=== PATIENT | male | born 1970 | race Caucasian/White ===

== ENCOUNTER 2020-04-13 16:14 | Emergency (ER) | payer BC ==
[~2020-04-13] VITALS: Ht 188 cm; Wt 136.1 kg
--- OUTSIDE RECORDS SUMMARY | ~2020-04-13 | XMS | Encounter Summary ---
Demographics + + + | Address | [address] | | | [place] [address] | + + + | Home Phone | | + + + | Preferred Language | Unknown | + + + | Marital Status | Single | + + + | Hoahaoism Affiliation | Unknown | + + + | Race | Unknown | + + + | Ethnic Group | Unknown | + + + Author + + + | Author | [facility] [place] | | | and [place] | + + + | Organization | [facility] | | | and [place] | + + + | Address | Unknown | + + + | Phone | Unavailable | + + + Support + + +---------+ + | Name | Relationship | Address | Phone | + + +---------+ + | Lyn Humphrey | ECON | Unknown | | + + +---------+ + Care Team Providers + +------+ + | Care Director Of Purchasing Name | Role | Phone | + +------+ + PCP | Unavailable | + +------+ + Encounter Details +--------+ + + + + | Date | Type | Department | Care Team | Description | +--------+ + + + + | 07/17/ | Hospital | [facility] [facility] | Alondra Mota | | | 2014 | Encounter | [facility] | [address] | | | | | CLIN[address] | [place] | | | | | [place], [place] | [address] | | | | | [address] | [phone] | | | | | [phone] | | | +--------+ + + + + Social History + +-------+ +--------+------+ | Tobacco Use | Types | Packs/Day | Years | Date | | | | | Used | | + +-------+ +--------+------+ | Never Assessed | | | | | + +-------+ +--------+------+ + + + | Sex Assigned at | Date Recorded | | | | + + + | Not on file | | + + + + + + + | Job Start Date | Occupation | Industry | + + + + | Not on file | Not on file | Not on file | + + + + + + + + | Travel History | Travel Start | Travel End | + + + + + + | No recent travel history available. | + + documented as of this encounter Plan of Treatment Not on filedocumented as of this encounter Visit Diagnoses Not on filedocumented in this encounter"
--- OUTSIDE RECORDS SUMMARY | ~2020-04-13 | XMS | Clinical Summary ---
Demographics + + + | Address | [address] | | | [place] [address] | + + + | Home Phone | | + + + | Preferred Language | Unknown | + + + | Marital Status | Single | + + + | Latter-Day Affiliation | Unknown | + + + | Race | Unknown | + + + | Ethnic Group | Unknown | + + + Author + + + | Author | [facility] | | | and [place] | + + + | Organization | [facility] | | | and [place] | [...] Team Providers + +------+ + | Care Senior Clinical Research Associate Name | Role | Phone | + +------+ + | Zoran Villeda | PCP | | | PA-C | | | + +------+ + Allergies Not on File Medications Not on file Active Problems Not on file Social History + +-------+ +--------+------+ | Tobacco [...] recent travel history available. | + + Last Filed Vital Signs + + + + + | Vital Sign | Reading | Time Taken | Comments | + + + + + | Blood Pressure | 126/78 | 08/27/2015 12:42 PM | | | | | PDT | | + + + + + | Pulse | 89 | 08/27/2015 12:42 PM | | | | | PDT | | + + + + + | Temperature | 36.4 C (97.6 F) | 08/27/2015 12:42 PM | | | | | PDT | | + + + + + | Respiratory Rate | 18 | 08/27/2015 12:42 PM | | | | | PDT | | + + + + + | Oxygen Saturation | 95% | 08/27/2015 12:42 PM | | | | | PDT | | + + + + + | Inhaled Oxygen | - | - | | | Concentration | | | | + + + + + | Weight | 149.4 kg (329 lb 6.4 | 08/27/2015 12:42 PM | | | | oz) | PDT | | + + + + + | Height | 188 cm (6' 2") | 08/27/2015 12:42 PM | | | | | PDT | | + + + + + | Body Mass Index | 42.29 | 08/27/2015 12:42 PM | | | | | PDT | | + + + + + Plan of Treatment + + + + + | Health Maintenance | Due Date | Last Done | Comments | + + + + + | Vaccine: | | | | | Dtap/Tdap/Td (1 - | 2 | | | | Tdap) | | | | + + + + + | Vaccine: Influenza | | | | | (Season Ended) | 0 | | | + + + + + Results Not on filefrom Last 3 Months
--- OUTSIDE RECORDS SUMMARY | ~2020-04-13 | XMS | Encounter Summary ---
Demographics + + + | Address | [address] | | | [place] [address] | + + + | Home Phone | | + + + | Preferred Language | Unknown | + + + | Marital Status | Single | + + + | Hoahaoism Affiliation | Unknown | + + + | Race | Unknown | + + + | Ethnic Group | Unknown | + + + Author + + + | Author | [facility] | | | and [place] | + + + | Organization | [facility] | | | and [place] | [...] Team Providers + +------+ + | Care Soil Analyst Name | Role | Phone | + +------+ + PCP | Unavailable | + +------+ + Encounter Details +--------+ + + + + | Date | Type | Department | Care Team | Description | +--------+ + + + + | 07/30/ | [facility] | [facility] | Chelsi Collado | | | 2014 | Encounter | [facility] | [address] | | | | | [address] | [facility], [place] | | | | | [facility] [place], | [address] | | | | | [place] [address] | [phone] | | | | | [phone] | | | +--------+ + + + [...]
--- OUTSIDE RECORDS SUMMARY | ~2020-04-13 | XMS | Encounter Summary ---
Demographics + + + | Address | [address] | | | [place] [address] | + + + | Home Phone | | + + + | Preferred Language | Unknown | + + + | Marital Status | Single | + + + | Restorationism Affiliation | Unknown | + + + | Race | Unknown | + + + | Ethnic Group | Unknown | + + + Author + + + | Author | [facility] | | | and [place] | + + + | Organization | [facility] | | | and [place] | [...] Team Providers + +------+ + | Care Animal Care Attendant Name | Role | Phone | + +------+ + PCP | Unavailable | + +------+ + Encounter Details +--------+ + + + + | Date | Type | Department | Care Team | Description | +--------+ + + + + | 12/20/ | Hospital | [facility] [facility] | Chelsi Collado | | | 2015 | Encounter | [facility] X[facility] | [address] | | | | | [place] | [facility], [place] | | | | | [place] | [address] | | | | | [address] | [phone] | | | | | [phone] | | | +--------+ + + + [...] Not on filedocumented as of this encounter Procedures + +--------+ + + + | Procedure Name | Priori | Date/Time | Associated Diagnosis | Comments | | | ty | | | | + +--------+ + + + | US ABDOMEN LIMITED | Routin | 12/20/2014 | | Results for this | | | e | 7:33 AM | | procedure are in the | | | | PST | | results section. | + +--------+ + + + documented in this encounter Results US Abdomen Limited (12/20/2014 7:33 AM PST) + + | Specimen | + + | | + + + + + | Narrative | Performed At | + + + | ORIGINAL ULTRASOUND GALLBLADDER: CLINICAL | | | STATEMENT: Right upper quadrant pain. COMPARISON: None. | | | REPORT: The gallbladder is satisfactorily distended without stones, | | | wall thickening or pericholecystic edema. The common duct is 2 mm. | | | Increased hepatic echogenicity with masking of the portal triads is | | | noted. Adjacent to the gallbladder is a region of hypoechogenicity | | | relative to the remaining visualized liver probably on the basis of | | | focal fatty sparing. IMPRESSION: 1. The gallbladder appears | | | within normal limits. 2. Diffuse fatty infiltration of the liver. | | | Read By: SARAH Smart | | | MD ELI Released By: SARAH BENITEZ MD Date: 12/21/2014 | | | 07:49 | | + + + + + | Procedure Note | + + | Willem, Rad Results In - 09/15/2017 6:32 PM PST ORIGINAL ULTRASOUND GALLBLADDER: | | CLINICAL STATEMENT:Right upper quadrant pain. COMPARISON:None. REPORT:The gallbladder is | | satisfactorily distended without stones, wall thickening or pericholecystic edema. The | | common duct is 2 mm. Increased hepatic echogenicity with masking of the portal triads | | is noted. Adjacent to the gallbladder is a region of hypoechogenicity relative to the | | remaining visualized liver probably on the basis of focal fatty sparing. IMPRESSION:1. | | The gallbladder appears within normal limits.2. Diffuse fatty infiltration of the liver. | | Job#: [id number] Read By: SARAH BENITEZ MD Released By: SARAH Smart | | ELI MDDate: 12/21/2014 07:49 | |COMPARISON: | |None. | | | |REPORT: | |The gallbladder is satisfactorily distended without stones, wall thickening or pericholecys tic edema. The common duct is 2 mm. | | | |Increased hepatic echogenicity with masking of the portal triads is noted. Adjacent to the gallbladder is a region of hypoechogenicity relative to the remaining visualized liver prob ably on the basis of focal fatty sparing. | | | |IMPRESSION: | |1. The gallbladder appears within normal limits. | |2. Diffuse fatty infiltration of the liver. | | | | | | | | | | | | | | | | | |Read By: SARAH BENITEZ MD | | | |Released By: SARAH BENITEZ MD | |Date: 12/21/2014 07:49 | | | | | + + documented in this encounter Visit Diagnoses Not on filedocumented in this encounter"
--- OUTSIDE RECORDS SUMMARY | ~2020-04-13 | XMS | Encounter Summary ---
Demographics + + + | Address | [address] | | | [place] [address] | + + + | Home Phone | | + + + | Preferred Language | Unknown | + + + | Marital Status | Single | + + + | Spiritism Affiliation | Unknown | + + + | Race | Unknown | + + + | Ethnic Group | Unknown | + + + Author + + + | Author | [facility] [place] | | | and [place] | + + + | Organization | [facility] | | | and [place] [...] Team Providers + +------+ + | Care Nutrition Partner Name | Role | Phone | + [...] | | | | [place] | [facility], [place] | | | | | [place] | [address] | | | | | [address] | [phone] | | | | | [phone] | | | +--------+ + + + [...] | + +--------+ + + + | XR FOOT RIGHT 3 + VW | Routin | 12/20/2014 | | Results for this | | | e | 7:39 AM | | procedure are in the | | | | PST | | results section. | + +--------+ + + + documented in this encounter Results XR Foot Right 3 + Vw (12/20/2014 7:39 AM PST) + + | Specimen | + + | | + + + + + | Narrative | Performed At | + + + | ORIGINAL FOOT, THREE VIEW, RIGHT: CLINICAL | | | STATEMENT: Right foot pain. REPORT: No fracture or dislocation | | | is seen. No periosteal thickening is evident. No distinct joint | | | space asymmetry is seen. On lateral projection bony hypertrophic | | | change is noted at the talonavicular joint. IMPRESSION: 1. No | | | acute findings identified. 2. Bony hypertrophic change talonavicular | | | joint with talar beak type appearance. This finding may relate to | | | degenerative change of the talonavicular joint, although coalition | | | type process can result in talar beaking. CT and/or MRI may provide | | | additional information. | | | Read By: SARAH BENITEZ MD Released By: SARAH BENITEZ, | | | Date: 12/21/2014 07:49 | | + + + + + | Procedure Note | + + | Willem, Rad Results In - 09/15/2017 6:32 PM PST ORIGINAL FOOT, THREE VIEW, RIGHT: | | CLINICAL STATEMENT:Right foot pain. REPORT:No fracture or dislocation is seen. No | | periosteal thickening is evident. No distinct joint space asymmetry is seen. On | | lateral projection bony hypertrophic change is noted at the talonavicular joint. | | IMPRESSION:1. No acute findings identified.2. Bony hypertrophic change talonavicular | | joint with talar beak type appearance. This finding may relate to degenerative change of | | the talonavicular joint, although coalition type process can result in talar beaking. | | CT and/or MRI may provide additional information. Job#: [id number] Read | | By: SARAH BENITEZ MD Released By: SARAH BENITEZ MDDate: 12/21/2014 07:49 | |REPORT: | |No fracture or dislocation is seen. No periosteal thickening is evident. No distinct join t space asymmetry is seen. On lateral projection bony hypertrophic change is noted at the t alonavicular joint. | | | |IMPRESSION: | |1. No acute findings identified. | |2. Bony hypertrophic change talonavicular joint with talar beak type appearance. This findi ng may relate to degenerative change of the talonavicular joint, although coalition type pro cess can result in talar | |beaking. CT and/or MRI may provide additional | | information. | | | | | | | | | | | | | | | | | |Read By: SARAH BENITEZ MD | | | |Released By: SARAH BENITEZ MD | |Date: 12/21/2014 07:49 | | | | | + + documented in this encounter Visit Diagnoses Not on filedocumented in this encounter"
--- OUTSIDE RECORDS SUMMARY | ~2020-04-13 | XMS | Encounter Summary ---
Demographics + + + | Address | [address] | | | [place] [address] | + + + | Home Phone | | + + + | Preferred Language | Unknown | + + + | Marital Status | Single | + + + | Restorationism Affiliation | Unknown | + + + | Race | Unknown | + + + | Ethnic Group | Unknown | + + + Author + + + | Author | [facility] | | | and [place] | + + + | Organization | [facility] | | | and [place] [...] Team Providers + +------+ + | Care Occupational Health Manager Name | Role | Phone | + +------+ + PCP | Unavailable | + +------+ + Encounter Details +--------+ + + + + | Date | Type | Department | Care Team | Description | +--------+ + + + + | 08/27/ | [facility] | [facility] | Chelsi Collado | | | 2014 | Encounter | [facility] | [address] | | | | | [address] | [facility], [place] | | | | | [facility], | [address] | | | | | [place] [address] | [phone] | | | | | [phone] | | | +--------+ + + + [...]
--- OUTSIDE RECORDS SUMMARY | ~2020-04-13 | XMS | Encounter Summary ---
Demographics + + + | Address | [address] | | | [place] [address] | + + + | Home Phone | | + + + | Preferred Language | Unknown | + + + | Marital Status | Single | + + + | Christianity Affiliation | Unknown | + + + | Race | Unknown | + + + | Ethnic Group | Unknown | + + + Author + + + | Author | [facility] | | | and [place] | + + + | Organization | [facility] | | | and [place] [...] Team Providers + +------+ + | Care Grinding Machine Operator Portable Name | Role | Phone | + +------+ + PCP | Unavailable | + +------+ + Encounter Details +--------+ + + + + | Date | Type | Department | Care Team | Description | +--------+ + + + + | 07/30/ | [facility] | [facility] | Chelsi Collado | | | 2014 | Encounter | [facility] | [address] | | | | | [address] | [facility], [place] | | | | | [facility], | [address] | | | | | [place] [address] | [phone] | | | | | [phone] | | | +--------+ + + + [...]
--- OUTSIDE RECORDS SUMMARY | ~2020-04-13 | XMS | Encounter Summary ---
Demographics + + + | Address | [address] | | | [place] [address] | + + + | Home Phone | | + + + | Preferred Language | Unknown | + + + | Marital Status | Single | + + + | Congregational Affiliation | Unknown | + + + | Race | Unknown | + + + | Ethnic Group | Unknown | + + + Author + + + | Author | [facility] | | | and [place] | + + + | Organization | [facility] | | | and [...] Team Providers + +------+ + | Care Truck Rental Service Attendant Name | Role | Phone | + +------+ + PCP | Unavailable | + +------+ + Encounter Details +--------+ + + + + | Date | Type | Department | Care Team | Description | +--------+ + + + + | 08/27/ | [facility] | [facility] | Chelsi Collado | | | 2014 | Encounter | [facility] | [address] | | | | | [address] | [facility], [place] | | | | | [facility], | [address] | | | | | [place] [address] | [phone] | | | | | [phone] | | | +--------+ + + + [...]
--- OUTSIDE RECORDS SUMMARY | ~2020-04-13 | XMS | Encounter Summary ---
Demographics + + + | Address | [address] | | | [place] [address] | + + + | Home Phone | | + + + | Preferred Language | Unknown | + + + | Marital Status | Single | + + + | Druze Affiliation | Unknown | + + + | Race | Unknown | + + + | Ethnic Group | Unknown | + + + Author + + + | Author | [facility] | | | and [place] | + + + | Organization | [facility] | | | and [place] [...] Team Providers + +------+ + | Care Car Dumper Name | Role | Phone | + +------+ + PCP | Unavailable | + +------+ + Encounter Details +--------+ + + + + | Date | Type | Department | Care Team | Description | +--------+ + + + + | 05/14/ | Hospital | [facility] | Alondra Mota | | | 2015 | Encounter | [facility] | [address] | | | | | [facility] | [place] | | | | | [address] [facility], | [address] | | | | | [place] [address] | [phone] | | | | | [phone] | | | +--------+ + + + [...]
--- OUTSIDE RECORDS SUMMARY | ~2020-04-13 | XMS | Encounter Summary ---
Demographics + + + | Address | [address] | | | [place] [address] | + + + | Home Phone | | + + + | Preferred Language | Unknown | + + + | Marital Status | Single | + + + | Jainism Affiliation | Unknown | + + + | Race | Unknown | + + + | Ethnic Group | Unknown | + + + Author + + + | Author | [facility] | | | and [place] | + + + | Organization | [facility] | | | and [place] [...] Team Providers + +------+ + | Care Slurry Blender Name | Role | Phone | + +------+ + PCP | Unavailable | + +------+ + Encounter Details +--------+ + + + + | Date | Type | Department | Care Team | Description | +--------+ + + + + | 05/24/ | Hospital | [facility] | Chelsi Collado | | | 2015 | Encounter | [facility] X[facility] | [address] | | | | | [place] | [facility], [place] | | | | | [place] | [address] | | | | | [address] | [phone] | | | | | [phone] | | | +--------+ + + + [...] | + +--------+ + + + | FL BARIUM SWALLOW | Routin | 05/24/2015 | | Results for this | | | e | 8:54 AM | | procedure are in the | | | | PDT | | results section. | + +--------+ + + + documented in this encounter Results FL Barium Swallow (05/24/2015 8:54 AM PDT) + + | Specimen | + + | | + + + + + | Narrative | Performed At | + + + | ORIGINAL ESOPHAGRAM: HISTORY: Dysphagia. | | | FINDINGS: Course and caliber of the esophagus is within normal | | | limits. No intraluminal filling defect. No tertiary contractions. | | | Mild dysmotility was noted with the patient in prone position. | | | There is a small hiatal hernia. Ujui-dl-zbbuasee amount of | | | gastroesophageal reflux was also noted. IMPRESSION: 1. Small | | | hiatal hernia. 2. Gastroesophageal reflux. 3. Mild dysmotility. | | | Total fluoro time 1 minute 46 seconds. Job#: | | | [id number] Read By: JURGEN LUNA MD Released By: JURGEN | | | Berry LUNA MD Date: 05/24/2015 13:57 | | + + + + + | Procedure Note | + + | Willem, Rad Results In - 09/15/2017 7:51 PM PST ORIGINAL ESOPHAGRAM: | | HISTORY:Dysphagia. FINDINGS:Course and caliber of the esophagus is within normal limits. | | No intraluminal filling defect. No tertiary contractions. Mild dysmotility was noted | | with the patient in prone position. There is a small hiatal hernia. Rpwn-wo-vcinlwcv | | amount of gastroesophageal reflux was also noted. IMPRESSION:1. Small hiatal hernia.2. | | Gastroesophageal reflux.3. Mild dysmotility. Total fluoro time 1 minute 46 seconds. D: | | 05/24/15Job#: [id number] Read By: JURGEN LUNA MD Released By: JURGEN LUNA, | | MDDate: 05/24/2015 13:57 | | | |FINDINGS: | |Course and caliber of the esophagus is within normal limits. No intraluminal filling defec t. No tertiary contractions. Mild dysmotility was noted with the patient in prone position . There is a small hiatal hernia. Osul-ji-lfuziily amount of | |gastroesophageal reflux was also noted. | | | |IMPRESSION: | |1. Small hiatal hernia. | |2. Gastroesophageal reflux. | |3. Mild dysmotility. | | | |Total fluoro time 1 minute 46 seconds. | | | | | | | | | |Read By: JURGEN LUNA MD | | | |Released By: JURGEN LUNA MD | |Date: 05/24/2015 13:57 | | | | | + + documented in this encounter Visit Diagnoses Not on filedocumented in this encounter"
--- OUTSIDE RECORDS SUMMARY | ~2020-04-13 | XMS | Encounter Summary ---
Demographics + + + | Address | [address] | | | [place] [address] | + + + | Home Phone | | + + + | Preferred Language | Unknown | + + + | Marital Status | Single | + + + | Methodist Affiliation | Unknown | + + + | Race | Unknown | + + + | Ethnic Group | Unknown | + + + Author + + + | Author | [facility] | | | and [place] | + + + | Organization | [facility] | | | and [place] | [...] Team Providers + +------+ + | Care Pre Parole Counseling Aide Name | Role | Phone | + [...] | | | [place], [place] | [address] | | | | | [address] | [phone] | | | | | [phone] | | | +--------+ + + + [...]
--- OUTSIDE RECORDS SUMMARY | ~2020-04-13 | XMS | Encounter Summary ---
Demographics + + + | Address | [address] | | | [place] [address] | + + + | Home Phone | | + + + | Preferred Language | Unknown | + + + | Marital Status | Single | + + + | Baptist Affiliation | Unknown | + + + | Race | Unknown | + + + | Ethnic Group | Unknown | + + + Author + + + | Author | [facility] | | | and [place] | + + + | Organization | [facility] | | | and [place] | [...] Team Providers + +------+ + | Care Fur Matcher Name | Role | Phone | + +------+ + PCP | Unavailable | + +------+ + Encounter Details +--------+ + + + + | Date | Type | Department | Care Team | Description | +--------+ + + + + | 04/02/ | Hospital | [place] [facility] | [facility] | | | 2014 | Encounter | [facility] | [address] | | | | | [place] | [place], [place] | | | | | [place] | [address] | | | | | [address] | [phone] | | | | | [phone] | | | +--------+ + + + [...] | + +--------+ + + + | CT HEAD WO CONTRAST | Routin | 04/02/2015 | | Results for this | | | e | 8:36 AM | | procedure are in the | | | | PDT | | results section. | + +--------+ + + + documented in this encounter Results CT Head wo Contrast (04/02/2015 8:36 AM PDT) + + | Specimen | + + | | + + + + + | Narrative | Performed At | + + + | ORIGINAL CT HEAD WITHOUT CONTRAST: CLINICAL | | | STATEMENT: Migraines. COMPARISON: None. TECHNIQUE: Axial | | | noncontrast images are obtained through the brain. DLP is 1128.24 | | | mGy-cm. REPORT: No intracranial hemorrhage, midline shift, mass | | | effect, or extraaxial fluid collection is seen. The brain parenchyma | | | appears within normal attenuation and configuration. The posterior | | | fossa contents appear within normal limits. The mastoid air cells | | | and middle ears are clear. Mild mucosal thickening is present at the | | | base of the right frontal sinus. Lucency is noted surrounding a | | | probable lateral incisor right maxilla. Subtle decreased | | | mineralization is also noted adjacent to probable premolar and molar | | | teeth on the left maxilla. IMPRESSION: 1. Intracranial contents | | | appear within normal limits. 2. Dental disease as above. 3. Mild | | | paranasal sinus disease. Read | | | By: SARAH BENITEZ MD Released By: SARAH BENITEZ MD Date: | | | 04/02/2015 20:23 | | + + + + + | Procedure Note | + + | Willem, Rad Results In - 09/15/2017 7:[address] HEAD WITHOUT | | CONTRAST: CLINICAL STATEMENT:Migraines. COMPARISON:None. TECHNIQUE:Axial noncontrast | | images are obtained through the brain. DLP is 1128.24 mGy-cm. REPORT:No intracranial | | hemorrhage, midline shift, mass effect, or extraaxial fluid collection is seen. The | | brain parenchyma appears within normal attenuation and configuration. The posterior | | fossa contents appear within normal limits. The mastoid air cells and middle ears are | | clear. Mild mucosal thickening is present at the base of the right frontal sinus. | | Lucency is noted surrounding a probable lateral incisor right maxilla. Subtle decreased | | mineralization is also noted adjacent to probable premolar and molar teeth on the left | | maxilla. IMPRESSION:1. Intracranial contents appear within normal limits.2. Dental | | disease as above.3. Mild paranasal sinus disease. Job #: [id number] Read By: | | SAARH BENITEZ MD Released By: SARAH BENITEZ, MDDate: 04/02/2015 20:23 | |Axial noncontrast images are obtained through the brain. DLP is 1128.24 mGy-cm. | | | |REPORT: | |No intracranial hemorrhage, midline shift, mass effect, or extraaxial fluid collection is s een. The brain parenchyma appears within normal attenuation and configuration. The posteri or fossa contents appear within | |normal limits. The mastoid air cells | |and middle ears are clear. Mild mucosal thickening is present at the base of the right fro ntal sinus. | | | |Lucency is noted surrounding a probable lateral incisor right maxilla. Subtle decreased mi neralization is also noted adjacent to probable premolar and molar teeth on the left maxilla . | | | |IMPRESSION: | |1. Intracranial contents appear within normal limits. | |2. Dental disease as above. | |3. Mild paranasal sinus disease. | | | | | | | | | |Read By: SARAH BENITEZ MD | | | |Released By: SARAH BENITEZ MD | |Date: 04/02/2015 20:23 | | | | | + + documented in this encounter Visit Diagnoses Not on filedocumented in this encounter"
--- OUTSIDE RECORDS SUMMARY | ~2020-04-13 | XMS | Encounter Summary ---
Demographics + + + | Address | [address] | | | [place] [address] | + + + | Home Phone | | + + + | Preferred Language | Unknown | + + + | Marital Status | Single | + + + | Congregation Affiliation | Unknown | + + + | Race | Unknown | + + + | Ethnic Group | Unknown | + + + Author + + + | Author | [facility] | | | and [place] | + + + | Organization | [facility] | | | and [...] Team Providers + +------+ + | Care Fruit Or Nut Crops Farm Manager Name | Role | Phone | [...] | | | | [place] | [facility], [place] | | | | | [place] | [address] | | | | | [address] | [phone] | | | | | [phone] | | | +--------+ + + + [...] infiltration of the liver. | | Job#: [id number] Read By: SARAH BENITEZ MD Released By: [...]
--- OUTSIDE RECORDS SUMMARY | ~2020-04-13 | XMS | Encounter Summary ---
Demographics + + + | Address | [address] | | | [place] [address] | + + + | Home Phone | | + + + | Preferred Language | Unknown | + + + | Marital Status | Single | + + + | Christian Affiliation | Unknown | + + + | Race | Unknown | + + + | Ethnic Group | Unknown | + + + Author + + + | Author | [facility] | | | and [place] | + + + | Organization | [facility] | | | and [...] Team Providers + +------+ + | Care Morphology Teacher Name | Role | Phone | + [...] | | | | [place] | [facility], [place] | | | | | [place] | [address] | | | | | [address] | [phone] | | | | | [phone] | | | +--------+ + + + [...] | There is a small hiatal hernia. Zdxs-mc-ogmubzpr amount of | | | gastroesophageal reflux was also noted. IMPRESSION: 1. Small | | | hiatal hernia. 2. Gastroesophageal reflux. 3. Mild dysmotility. | | | Total fluoro time 1 minute 46 seconds. Job#: | | | [id number] Read By: JURGEN LUNA MD Released By: [...] position. There is a small hiatal hernia. Cyim-tp-alklehbf | | amount of gastroesophageal reflux was also noted. IMPRESSION:1. Small hiatal hernia.2. | | Gastroesophageal reflux.3. Mild dysmotility. Total fluoro time 1 minute 46 seconds. D: | | 05/24/15Job#: [id number] Read By: JURGEN LUNA MD Released By: JURGEN LUNA, | | MDDate: 05/24/2015 13:57 | | | |FINDINGS: | |Course and caliber of the esophagus is within normal limits. No intraluminal filling defec t. No tertiary contractions. Mild dysmotility was noted with the patient in prone position . There is a small hiatal hernia. Shix-dy-ieeecyqr amount of | |gastroesophageal reflux was also [...]
--- OUTSIDE RECORDS SUMMARY | ~2020-04-13 | XMS | Encounter Summary ---
Demographics + + + | Address | [address] | | | [place] [address] | + + + | Home Phone | | + + + | Preferred Language | Unknown | + + + | Marital Status | Single | + + + | Jewish Affiliation | Unknown | + + + | Race | Unknown | + + + | Ethnic Group | Unknown | + + + Author + + + | Author | [facility] | | | and [place] | + + + | Organization | [facility] | | | and [place] [...] Team Providers + +------+ + | Care Two Way Radio Installer Name | Role | Phone | + +------+ + PCP | Unavailable | + +------+ + Encounter Details +--------+ + + + + | Date | Type | Department | Care Team | Description | +--------+ + + + + | 05/14/ | Hospital | [facility] | Alondra Mota | | | 2015 | Encounter | [facility] | [address] | | | | | [facility] | [place] | | | | | [address] [facility], | [address] | | | | | [place] [address] | [phone] | | | | | [phone] | | | +--------+ + + + [...]
--- OUTSIDE RECORDS SUMMARY | ~2020-04-13 | XMS | Encounter Summary ---
Demographics + + + | Address | [address] | | | [place] [address] | + + + | Home Phone | | + + + | Preferred Language | Unknown | + + + | Marital Status | Single | + + + | Evangelical Affiliation | Unknown | + + + | Race | Unknown | + + + | Ethnic Group | Unknown | + + + Author + + + | Author | [facility] | | | and [place] | + + + | Organization | [facility] | | | and [place] [...] Team Providers + +------+ + | Care Antenna Rigger Name | Role | Phone | + [...] | | | | [place] | [facility], [place] | | | | | [place] | [address] | | | | | [address] | [phone] | | | | | [phone] | | | +--------+ + + + [...] Read By: SARAH BENITEZ MD Released By: ASRAH BENITEZ, | | | Date: 12/21/2014 07:49 [...] and/or MRI may provide additional information. Job#: [id number] Read | | By: SARAH BENITEZ MD [...]
--- OUTSIDE RECORDS SUMMARY | ~2020-04-13 | XMS | Encounter Summary ---
Demographics + + + | Address | [address] | | | [place] [address] | + + + | Home Phone [...] + + + | Author | [facility] | | | and [place] | + + + | Organization | [facility] | | | and [...] Team Providers + +------+ + | Care Sourcing Analyst Name | Role | Phone | [...] | | | | [place] | [facility], [place] | | | | | [place] | [address] | | | | | [address] | [phone] | | | | | [phone] | | | +--------+ + + + [...] above.3. Mild paranasal sinus disease. Job #: [id number] Read By: | | SARAH BENITEZ MD Released By: SARAH BENITEZ, MDDate: [...]
--- OUTSIDE RECORDS SUMMARY | ~2020-04-13 | XMS | Clinical Summary ---
Demographics + + + | Address | [address] | | | [place] [address] | + + + | Home Phone | | + + + | Preferred Language | Unknown | + + + | Marital Status | Single | + + + | Protestant Affiliation | Unknown | + + + | Race | Unknown | + + + | Ethnic Group | Unknown | + + + Author + + + | Author | [facility] | | | and [place] | + + + | Organization | [facility] | | [...] Team Providers + +------+ + | Care Properties Supervisor Name | Role | Phone | + [...]
== END 2020-04-13 17:45 | disposition home or self-care (01) ==
LOC: ED 16:14
DX: S96.912A Strain of unspecified muscle and tendon at ankle and foot level, left foot, initial encounter (principal); F17.200 Nicotine dependence, unspecified, uncomplicated; Z88.0 Allergy status to penicillin; X58.XXXA Exposure to other specified factors, initial encounter
CPT/HCPCS: 73630; 99283-25

== ENCOUNTER 2020-05-11 14:26 | Emergency (ER) | payer BC ==
[~2020-05-11] VITALS: Ht 188 cm; Wt 136.1 kg
--- OUTSIDE RECORDS SUMMARY | 2020-05-11 14:30 | XMS ---
PreManage Notification: [facility] Security Station Installation Supervisor Events No recent Security Events currently on file CRITERIA MET - [facility] - 2 Visits in 30 Days CARE PROVIDERS There are no care providers on record at this time. Julio has no Care Guidelines for this patient. [facility] VISIT COUNT ([address] [facility] NOTE: Visits indicate total known visits. ED[facility] VISIT TRACKING (12 MO.) [facility] [place] [facility] COMPLAINT: - LEFT ANKLE PAIN, NON INJ 04/13/2020 16:16 [facility] [place] TYPE: Emergency COMPLAINT: - LEFT FOOT PAIN, NON INJ DIAGNOSES: - Nicotine dependence, unspecified, uncomplicated - Strain of unspecified muscle and tendon at ankle and foot lev - Allergy status to penicillin - Exposure to other specified factors, initial encounter - Pain in left foot INPATIENT VISIT TRACKING (12 MO.) No inpatient visits to display in this time frame [email or web address]
[2020-05-11] MEDS ORDERED: NORCO 5-325 TA1 EACH PO (15:39)
[2020-05-11] MEDS ORDERED: PREDNISONE20 MG PO (15:39)
== END 2020-05-11 16:01 | disposition home or self-care (01) ==
LOC: ED 14:26
DX: M25.572 Pain in left ankle and joints of left foot (principal); E66.01 Morbid (severe) obesity due to excess calories; F17.200 Nicotine dependence, unspecified, uncomplicated; Z88.0 Allergy status to penicillin; Z68.38 Body mass index [BMI] 38.0-38.9, adult
CPT/HCPCS: 73610; 99283-25